=== PATIENT | male | born 1980 | race Caucasian/White ===

== ENCOUNTER 2022-02-11 08:18 | Emergency (ER) | payer SELFPAY ==
[2022-02-11 09:17] VITALS: BP 153/75; PULSE 65; RESP 16; TEMP 37.2; O2SAT 97; BMI 21.2
--- NOTE | 2022-02-11 09:44 | ED.SKABFB ---
HPI - Skin/Abscess/Foreign Bdy General Chief complaint: Skin/Abscess/Foreign Body Stated complaint: since august recuring sores that are back Time Seen by Provider: 02/11/22 09:43 Source: patient Mode of arrival: Ambulatory Limitations: no limitations History of Present Illness HPI narrative: This is a 41-year-old male with history of lumbar fusion and recurrent MRSA skin infections. Patient states over last several months he is had a small abscess or infection show up almost every single month except for October. Patient states they do typically sharp in areas where there is hair but he states he is a hairy . He has had I and D's sometimes he has been able to get treated with antibiotics before they get large enough. This when he states probably does not need drainage but is in the pubic area at the top of his pubic hair. He states he is felt a little no fevers, no chills, no chest pain, no shortness of breath, no abdominal pain, no nausea or vomiting, no diarrhea constipation. Redness has been not been spreading or tracking. States he has been on Bactrim that has not been helpful he has been on doxycycline which seems to be helpful. Moved to the area from [place] and has not established with health insurance so does not have a primary and has never seen a bean picker. He denies any daily medications besides ibuprofen as needed. Besides his back surgery no prior surgeries. States no issues with that surgery in terms of infection. He does use tobacco, he vapes uses marijuana, denies any IV drugs. No alcohol. Related Data Previous Rx's Medication Instructions Recorded doxycycline hyclate 100 mg tablet 100 mg PO BID 7 days #14 tabs 02/11/22 Review of Systems Review of Systems ROS Unobtainable: All systems reviewed & are unremarkable except as noted in HPI and below Exam Narrative Exam Narrative: GENERAL: Alert and oriented x three, tall, thin male in mild distress HEENT: Head normocephalic, atraumatic, EOMI, pupils reactive, face symmetric, moist mucous membranes NECK: Supple, full range of motion CARDIOVASCULAR: Regular rate and rhythm without murmurs, rubs or gallops. RESPIRATORY: Breath sounds equal bilaterally, no wheezes rales or rhonchi. ABDOMEN: Soft, nontender. Normoactive bowel sounds all 4 quadrants. No guarding or rebound, rigidity, no mass : No CVA tenderness EXTREMITIES: Normal range of motion, no clubbing or edema. Neurovascularly intact NEUROLOGICAL: Cranial nerves II through XII grossly intact. Moving all extremities SKIN: Warm, dry, no petechiae, no rashes or lesions. Patient has an area of erythema with induration midline suprapubic area at the upper edge of the care. No fluctuance, areas approximately cm in size with no surrounding cellulitis appreciated. Initial Vital Signs Initial Vital Signs: Vital Signs Temperature 99.0 F 02/11/22 09:17 Pulse Rate 65 02/11/22 09:17 Respiratory Rate 16 02/11/22 09:17 Blood Pressure 153/75 H 02/11/22 09:17 Pulse Oximetry 97 02/11/22 09:17 Oxygen Delivery Method 02/11/22 09:17 Course Orders Ordered: Discontinued Medications Doxycycline Hyclate (Doxycycline Hyclate 100 Mg Tablet) 100 mg PO NOW ONE Stop: 02/11/22 09:53 Last Admin: 02/11/22 10:03 Dose: 100 mg Documented By: CTS Vital Signs Vital signs: Vital Signs - 8 hr 02/11/22 09:17 Temperature 99.0 F Pulse Rate 65 Respiratory Rate 16 Blood Pressure 153/75 H Pulse Oximetry 97 Oxygen Delivery Method Room Air MDM - Skin/Abscess/Foreign Bdy MDM Narrative Medical decision making narrative: 41-year-old male with history of documented MRSA culture. Patient has a small abscess forming, he has responded well to doxycycline in the past. Patient has not had any systemic changes. No signs of sepsis on lab work or evaluation today. Plan to start oral antibiotic did discuss trying dilute bleach baths 1-3 times weekly to see if this may be helpful, exfoliation as it does look like he may be having this in areas where he is developed folliculitis. Return precautions discussed. Discharge Plan Departure Patient Disposition: Home Clinical Impression: Abscess of skin or subcutaneous tissue Instructions: DI for Skin Abscess Activity Restrictions/Additional Instructions: If you are having persistent and regular episodes of abscess or cellulitis it may be helpful to avoid shaving certain areas this can sometimes cause a folliculitis. It may also be helpful to exfoliate either with a loofah a scrub or an [id number] exfoliating body wash. If you are continuing to have regular persistent episodes you can try a bleach bath which is about a half cup of bleach in a quarter filled bath tub and can do this 1-3 times weekly. Take doxycycline 1 tab every 12 hours until completely gone. Prescription sent to [facility] Please return for rapidly worsening symptoms, signs of abscess needs to be drained, fevers, spreading redness, swelling, persistent vomiting or other new or concerning changes. Prescriptions: New doxycycline hyclate 100 mg tablet 100 mg PO BID 7 Days Qty: 14 0RF Visit Report Forms: Patient Portal/API
[2022-02-11] MEDS: DOXYCYCLINE HYCLATE 100 MG TABLET PO (10:03)
== END 2022-02-11 10:07 | disposition home or self-care (01) ==
PROVIDERS: Emergency Provider Emergency Medicine
DX: L02.211 Cutaneous abscess of abdominal wall (principal)
CPT/HCPCS: 99283

== ENCOUNTER 2022-04-02 23:32 | Emergency (ER) | payer SELFPAY ==
[2022-04-02 23:51] VITALS: BP 144/78; PULSE 76; RESP 20; TEMP 36.7; O2SAT 97; BMI 21.9
--- NOTE | 2022-04-03 03:37 | ED_ITS ---
HPI - Skin/Abscess/Foreign Bdy General Chief complaint: Skin/Abscess/Foreign Body Stated complaint: sores that are back Time Seen by Provider: 04/02/22 23:55 History of Present Illness HPI narrative: 41-year-old male daily smoker with history of multiple episodes of prior small abscesses and folliculitis presents with a chief complaint of a small area of erythema and tenderness adjacent to his umbilicus and a 2nd on his left lower leg. He denies any drainage or significant pain. He is had no systemic complaints such as fever, chills nor nausea or vomiting. He denies chest pain or shortness of breath. He denies abdominal pain nor dysuria, frequency or urgency. He states he traditionally does well with doxycycline and had been on it most recently a few weeks ago. He denies use of bath tubs or hot tubs. Related Data Previous Rx's Medication Instructions Recorded doxycycline hyclate 100 mg tablet 100 mg PO BID #20 tabs 04/03/22 Allergies Allergy/AdvReac Type Severity Reaction Status Date / Time No Known Drug Allergies Allergy Verified 04/02/22 23:57 Review of Systems Review of Systems Narrative: GENERAL: Denies chills, fatigue, malaise, fever, sweats. HEENT: Denies sinus pain, ear pain, sore throat, difficulty swallowing, dizziness. RESPIRATORY: Denies dyspnea, cough, wheezing, hemoptysis, sputum. CARDIOVASCULAR: Denies chest pain, palpitations, orthopnea, edema, GASTROINTESTINAL: Denies nausea, vomiting, abdominal pain, diarrhea, constipation, melena. : Denies dysuria, frequency, incontinence, hematuria, urinary retention. MUSCULOSKELETAL: denies weakness, joint pain, or bony pain SKIN: See HPI NEUROLOGIC: Denies weakness, headache, numbness, change in speech, confusion, seizures, incoordination. PSYCHIATRIC: No concerning psychosocial issues. 12 point review of systems is negative except for those stated above Patient History Social History Smoking Status: Current every day smoker Smoking Status: Current every day smoker tobacco type: vaping alcohol intake frequency: holidays/special occasions only Substance Use Type: marijuana Exam Narrative Exam Narrative: GENERAL: [41] year old patient appears stated age. Well-developed patient, in mild distress. HEAD: Atraumatic. Normocephalic. EYES: Pupils equal round and reactive. Extraocular motions intact. No scleral icterus. No injection or drainage. ENT: Nose without bleeding, purulent drainage. Throat without erythema, tonsillar hypertrophy or exudate. Airway patent. NECK: Trachea midline. Non tender CARDIOVASCULAR: Regular rate and rhythm without murmurs, gallops, or rubs. RESPIRATORY: Clear to auscultation. Breath sounds equal bilaterally. No wheezes, rales, or rhonchi. GASTROINTESTINAL: Abdomen soft, non-tender, nondistended. EXTREMITIES: No edema or joint tenderness. BACK: Nontender without deformity or crepitance. No flank tenderness. NEURO: AOx3. SKIN: 2 small slightly raised erythematous tender areas measuring approximately 1-2 cm across, 1 adjacent to umbilicus and a 2nd on left lower leg, no fluctuance or drainage to suggest incision and drainage is needed. No lymphangitis. Initial Vital Signs Initial Vital Signs: Vital Signs Temperature 98.1 F 04/02/22 23:51 Pulse Rate 76 04/02/22 23:51 Respiratory Rate 20 04/02/22 23:51 Blood Pressure 144/78 H 04/02/22 23:51 Pulse Oximetry 97 04/02/22 23:51 Oxygen Delivery Method 04/02/22 23:51 Course Orders Ordered: Discontinued Medications Doxycycline Hyclate (Doxycycline Hyclate 100 Mg Tablet) 100 mg PO NOW ONE Stop: 04/03/22 03:46 Last Admin: 04/03/22 03:55 Dose: Not Given Documented By: CARTER Doxycycline Hyclate (Doxycycline Hyclate 100 Mg Tablet) 100 mg PO NOW ONE Stop: 04/03/22 03:47 Last Admin: 04/03/22 03:54 Dose: 100 mg Documented By: CARTER Vital Signs Vital signs: Vital Signs - 8 hr 04/02/22 23:51 Temperature 98.1 F Pulse Rate 76 Respiratory Rate 20 Blood Pressure 144/78 H Pulse Oximetry 97 Oxygen Delivery Method Room Air MDM - Skin/Abscess/Foreign Bdy MDM Narrative Medical decision making narrative: 41-year-old male smoker with history of prior skin infections presents with 2 small areas of folliculitis or small abscess. No systemic findings, patient is not septic. Lesions are not amenable to incision and drainage. Labs and advanced imaging are not indicated based on his history and physical exam. Patient started on antibiotics with prescription sent to his pharmacy of choice. Given the frequency of these episodes I did encourage him to pursue establishing with a primary care provider and gave him contact for dermatology to pursue possible preventative measures. Return precautions discussed and include but are not limited to fever, chills, vomiting, worsening of lesions, lymphangitis, shortness of breath or other bothersome symptoms. Questions answered to his apparent satisfaction Discharge Plan Departure Patient Disposition: Home Clinical Impression: Abscess of skin or subcutaneous tissue Instructions: DI for Skin Abscess Activity Restrictions/Additional Instructions: *You have been diagnosed with [folliculitis with possible early abscess. As we discussed there is nothing to drain at this time and no indication for a more significant workup with labs, imaging etc.] *What to do: *Please continue to take your regular medications as directed. [ x] New medication prescriptions sent to your pharmacy: [ [facility]] [ ] New medication written as a paper prescription [ ] No new medications given *Please follow up with your primary care provider in 2-3 days, call for an appointment. Let them know you were seen in the Emergency Department and that we ask that you be seen in follow up. We will electronically transmit a record of today's note if your PCP is in our system *If you do not have a primary care provider please contact the [facility] Resource line at [phone]. They will ask some questions about your medical history and help get you set up with a doctor in the community. *Return to Emergency Department if you should have any new, worsening or concerning symptoms, such as [fever greater than 101 F, shaking chills, worsening pain, persistent vomiting or other bothersome symptoms] Prescriptions: New doxycycline hyclate 100 mg tablet 100 mg PO BID Qty: 20 0RF Referrals: Maritza Hernández MD [Physician] - Visit Report Forms: Patient Portal/API
--- NOTE | 2022-04-03 03:46 | PC.NURSE ---
assessment per Dr Campa
[2022-04-03] MEDS: DOXYCYCLINE HYCLATE 100 MG TABLET PO (03:54)
== END 2022-04-03 03:56 | disposition home or self-care (01) ==
PROVIDERS: Emergency Provider Emergency Medicine
DX: L02.416 Cutaneous abscess of left lower limb (principal); L02.216 Cutaneous abscess of umbilicus
CPT/HCPCS: 99283